=== PATIENT | male | born 1975 | race Caucasian/White ===

== ENCOUNTER 2018-04-04 11:56 | Emergency (ER) | payer OTHER ==
[~2018-04-04] VITALS: Ht 205.7 cm; Wt 117.9 kg
[~2018-04-04 11:56] MED LIST: BACTRIM DS TAB1 EACH PO; E-MYCIN250 MG PO; FLEXERIL PO; FLUZONE 2045 MCG/011; IBUPROFEN 800800 M1 PO; KEFLEX500 MG PO; NAPROSYN375 MG PO; NO HOME MEDICATIONS; NOHOMEMEDICATIONS; NORCO 5-325 TA1 EACH PO; PERCOCET 5-3251 EACH PO; PNEUMOVAX25 MCG/0.5; PROAIR HFA8.5 GM IH; TRAMADOL 50 MG50 MG PO; ZPAK PO
[2018-04-04] MEDS ORDERED: KEFLEX500 M1 PO (14:34)
[2018-04-04] MEDS ORDERED: PERCOCET PO (14:48)
[2018-04-04 14:51] VITALS: BP 130/79
== END 2018-04-04 14:52 | disposition home or self-care (01) ==
LOC: M.ERS 11:56
DX: S61.215A Laceration without foreign body of left ring finger without damage to nail, initial encounter (principal); S61.217A Laceration without foreign body of left little finger without damage to nail, initial encounter; F17.210 Nicotine dependence, cigarettes, uncomplicated; Z88.5 Allergy status to narcotic agent; Z88.0 Allergy status to penicillin; X58.XXXA Exposure to other specified factors, initial encounter; Y93.89 Activity, other specified; Y92.89 Other specified places as the place of occurrence of the external cause; Y99.8 Other external cause status

== ENCOUNTER 2018-04-08 10:35 | Emergency (ER) | payer OTHER ==
[~2018-04-08] VITALS: Ht 205.7 cm; Wt 117.9 kg
[~2018-04-08 10:35] MED LIST changes: +KEFLEX500 M1 PO; +PERCOCET PO
[2018-04-08] MEDS ORDERED: PERCOCET 5-3251 EACH PO (11:35)
[2018-04-08] MEDS ORDERED: IBUPROFEN 800800 M1 PO (11:35)
[2018-04-08 11:49] VITALS: BP 151/84
== END 2018-04-08 11:52 | disposition home or self-care (01) ==
LOC: M.ERS 10:35
DX: S61.207D Unspecified open wound of left little finger without damage to nail, subsequent encounter (principal); X58.XXXD Exposure to other specified factors, subsequent encounter

== ENCOUNTER 2018-04-12 19:14 | Inpatient (IN) | payer OTHER ==
[~2018-04-12] VITALS: Ht 205.7 cm; Wt 114.1 kg
[2018-04-12 19:22] VITALS: BP 153/94
[2018-04-12 20:14] LABS: ABSOLUTE BASOPHILS 0.1 thou/uL (0.0-0.2); ABSOLUTE EOSINOPHILS 0.1 thou/uL (0.0-0.7); ABSOLUTE LYMPHOCYTES 2.8 thou/uL (0.8-5.3); ABSOLUTE MONOCYTES 0.7 thou/uL (0.0-1.2); ABSOLUTE NEUTROPHILS 9.3 thou/uL (1.6-8.1); BASOPHILS 0.7 %; EOSINOPHILS 0.8 %; HEMATOCRIT 49.5 % (42.0-52.0); HEMOGLOBIN 16.4 gm/dL (14.0-18.0); LYMPHOCYTES 21.6 %; MCH 29.3 pg (26.0-34.0); MCHC 33.2 g/dL (28.0-37.0); MCV 88.2 fL (80.0-100.0); MONOCYTES 5.6 %; NUCLEATED RBCS 0 /100WBC; PLATELET COUNT* 373 thou/uL (150-400); POLYS 71.3 %; RBC 5.61 mil/uL (4.50-6.00); RDW-CV 13.9 % (10.5-14.5); WBC 13.1 thou/uL (4.0-11.0)
[2018-04-12 20:20] LABS: CALCIUM 8.9 mg/dL (8.5-10.1); CREATININE 1.1 mg/dL (0.6-1.3)
[2018-04-12 20:24] LABS: ALBUMIN 3.9 g/dL (3.4-5.0); TOTAL BILIRUBIN 0.7 mg/dL (<0.1-1.0); TOTAL PROTEIN 7.9 g/dL (6.4-8.2)
[2018-04-12 23:44] VITALS: BP 127/88
[2018-04-12 23:50] VITALS: BP 152/99
[2018-04-13 00:50] VITALS: BP 132/87
[2018-04-13 04:40] LABS: HEMATOCRIT 45.4 % (42.0-52.0); HEMOGLOBIN 14.9 gm/dL (14.0-18.0); MCH 29.5 pg (26.0-34.0); MCHC 32.9 g/dL (28.0-37.0); MCV 89.7 fL (80.0-100.0); MPV 7.4 fl. (7.2-11.1); RBC 5.06 mil/uL (4.50-6.00); RDW-CV 13.7 % (10.5-14.5); WBC 10.5 thou/uL (4.0-11.0)
[2018-04-13 05:20] LABS: ALBUMIN 3.2 g/dL (3.4-5.0); CALCIUM 8.1 mg/dL (8.5-10.1); TOTAL BILIRUBIN 0.5 mg/dL (<0.1-1.0); TOTAL PROTEIN 6.2 g/dL (6.4-8.2)
[2018-04-13 07:40] VITALS: BP 137/92
[2018-04-13 16:00] VITALS: BP 143/98
[2018-04-13 23:37] VITALS: BP 135/81
[2018-04-14 04:00] VITALS: BP 132/78
[2018-04-14 09:15] VITALS: BP 133/78
[2018-04-14] MEDS ORDERED: KEFLEX500 M1 PO (11:30)
[2018-04-14 11:31] VITALS: BP 133/78
[2018-04-14] MEDS ORDERED: NORCO 5-325 TA1 EACH PO (11:51)
== END 2018-04-14 12:40 | disposition home or self-care (01) | DRG 914 ==
LOC: M.ERS 19:14 → M.TBA-ER 19:52 → M.3W 19:52
PROVIDERS: Physician Assistant; ADMIT Internal Medicine
DX: S68.117A Complete traumatic metacarpophalangeal amputation of left little finger, initial encounter (principal); L03.012 Cellulitis of left finger; F17.210 Nicotine dependence, cigarettes, uncomplicated; Z88.6 Allergy status to analgesic agent; Z88.0 Allergy status to penicillin; Z79.899 Other long term (current) drug therapy; X58.XXXA Exposure to other specified factors, initial encounter; Y93.89 Activity, other specified; Y92.89 Other specified places as the place of occurrence of the external cause; Y99.8 Other external cause status

== ENCOUNTER 2018-10-30 19:08 | Emergency (ER) | payer OTHER ==
[~2018-10-30] VITALS: Ht 205.7 cm; Wt 117.9 kg
[2018-10-30] MEDS ORDERED: NOHOMEMEDICATIONS (19:18)
[2018-10-30 19:46] LABS: ABSOLUTE BASOPHILS 0.1 thou/uL (0.0-0.2); ABSOLUTE EOSINOPHILS 0.1 thou/uL (0.0-0.7); ABSOLUTE MONOCYTES 0.6 thou/uL (0.0-1.2); ABSOLUTE NEUTROPHILS 7.5 thou/uL (1.6-8.1); BASOPHILS 0.6 %; EOSINOPHILS 0.7 %; HEMATOCRIT 43.2 % (42.0-52.0); HEMOGLOBIN 14.8 gm/dL (14.0-18.0); LYMPHOCYTES 10.6 %; MCHC 34.1 g/dL (28.0-37.0); MONOCYTES 6.5 %; MPV 6.7 fl. (7.2-11.1); NUCLEATED RBCS 0 /100WBC; PLATELET COUNT* 277 thou/uL (150-400); POLYS 81.6 %; RBC 4.91 mil/uL (4.50-6.00); RDW-CV 13.7 % (10.5-14.5); WBC 9.2 thou/uL (4.0-11.0)
[2018-10-30 19:54] LABS: CALCIUM 8.9 mg/dL (8.5-10.1); CREATININE 1.3 mg/dL (0.6-1.3); POTASSIUM 3.9 mmol/L (3.5-5.1)
[2018-10-30] MEDS ORDERED: NABUMETONE 750750 M1 PO (20:06)
[2018-10-30] MEDS ORDERED: BACTRIM DS TAB1 EAC1 PO (20:06)
[2018-10-30 20:15] VITALS: BP 141/82
== END 2018-10-30 20:17 | disposition home or self-care (01) ==
LOC: M.ERS 19:08
PROVIDERS: Nurse Practitioner Family
DX: S91.332A Puncture wound without foreign body, left foot, initial encounter (principal); F17.210 Nicotine dependence, cigarettes, uncomplicated; Z88.8 Allergy status to other drugs, medicaments and biological substances; Z88.0 Allergy status to penicillin; W22.8XXA Striking against or struck by other objects, initial encounter; Y92.89 Other specified places as the place of occurrence of the external cause; Y93.89 Activity, other specified; Y99.8 Other external cause status

== ENCOUNTER 2021-01-07 16:20 | Emergency (ER) | payer OTHER ==
[~2021-01-07] VITALS: Ht 205.7 cm; Wt 102.1 kg
[~2021-01-07 16:20] MED LIST changes: +BACTRIM DS TAB1 EAC1 PO; +NABUMETONE 750750 M1 PO
[2021-01-07] MEDS ORDERED: IBUPROFEN 800800 M1 PO (17:49)
[2021-01-07] MEDS ORDERED: PERCOCET PO (17:57)
[2021-01-07 18:23] VITALS: BP 152/89
== END 2021-01-07 18:24 | disposition home or self-care (01) ==
LOC: M.ERS 16:20
DX: M25.462 Effusion, left knee (principal); F17.210 Nicotine dependence, cigarettes, uncomplicated; Z88.0 Allergy status to penicillin; Z88.5 Allergy status to narcotic agent; Z98.890 Other specified postprocedural states; W11.XXXA Fall on and from ladder, initial encounter; Y93.89 Activity, other specified; Y92.89 Other specified places as the place of occurrence of the external cause; Y99.9 Unspecified external cause status